=== PATIENT | female | born 1980 | race Caucasian/White ===

== ENCOUNTER → 2016-12-12 | Outpatient (CLI) | payer MEDICARE, BC | LOC: MW.CHNEURO 12:21 | PROVIDERS: ATTEND Psychiatry & Neurology Neuromuscular Medicine | DX: G35 Multiple sclerosis (principal); F33.8 Other recurrent depressive disorders | CPT/HCPCS: 36415; 80053; 84443; 85025; 99214 ==

== ENCOUNTER → 2016-12-15 | Outpatient (CLI) | payer MEDICARE, BC ==
[~2016-12-15] MED LIST: Gadobutrol 10 mMOL/10 ML SDV IVPUSH STA
--- NOTE | 2016-12-15 11:38 | BTN ---
SERVICE DATE: PATIENT #: [id number] #: NOT DICTATED IDENTIFYING INFORMATION: Yesenia is a 36-year-old female who is here today for a followup visit. I saw her last about a month ago. CURRENT MEDICATIONS: Prozac 80 mg a day, Wellbutrin XL 150 mg a day, trazodone 100 mg at bedtime, estazolam 1 mg to 2 mg at bedtime p.r.n., Ambien 5 mg to 10 mg at bedtime p.r.n. and she alternates between the estazolam and the Ambien, and lorazepam she takes 1 mg daily p.r.n. for anxiety. ALLERGIES: She has allergies to aspirin, hydrocodone, penicillin, sulfa, and tramadol. SUBJECTIVE: Aurelia is here today for a followup. She has had kind of a rough month. She came down with the flu and after that, she developed a tremor, some dizziness, no appetite; but she came down with the flu and it coincides with about the same time we started the Wellbutrin, so it is not real clear if that was really due to the flu or if the Wellbutrin is causing some side effects. She has been having a lot more anxiety. She has been having a lot more dreams, not nightmares; but just very vivid dreams. Tired all the time. She saw her neurologist and she is having an MRI done today, but the neurologist thinks it could be due to having the flu which has flared up her MS. REVIEW OF SYSTEMS: Aurelia has MS and that has been probably one of her major issues health peralta. She also has chronic headaches for which she takes Topamax for. No cardiac problems or no endocrine problems. Most recently, she has had the flu with some subsequent dizziness and tremulous. OBJECTIVE: VITAL SIGNS: Blood pressure is 102/76, heart rate 84, respirations 18, temperature is 97.8, weight is 156.8 pounds, and height is 62 inches. MENTAL STATUS EXAM: Yesenia looks tired today. She is a little bit wobbly. So she uses the wall to steady herself, but she is pleasant. Affect is a little flat. She is very well groomed. Appears her stated age. Speech is clear and appropriate. I do not see any delusions, psychosis, pressured speech, or tangential speech. She is alert and oriented x3. Recent and remote memory appear intact. Insight and judgment appear good. Eye contact is good, at least 15 minutes of today's visit were spent providing some cognitive restructuring and education on the side effects with medications and what to watch for. DIAGNOSES: Camuy I: Depression, F32.9; and anxiety, F41.8. Camuy II: No diagnosis. Camuy III: Multiple sclerosis and chronic migraines. Camuy IV: Current stressors are her the new episodes of dizziness, tremulous, and just not feeling well overall. Camuy V: Current Global Assessment of Functioning score 66. TREATMENT PLAN: She is still very depressed. PHQ-9 score is 22. CHARITY-7 score is 16. She does not have any suicidal or homicidal ideation, but she is still very depressed. We tried adding the Wellbutrin last time and I think that very likely could be somewhat because of the side effects she is having. 1. She has been on the Prozac now for a very long time. I do not think it is working, but I am going to get rid of that. She will drop down to 40 mg for the next three or four days and then just stop it. At the same time, I am going to have her start Pristiq 50 mg a day and I will see her back in 2 weeks. We discussed the side effects of the Pristiq. She has her MRI today if that is perfectly fine and they do not see anything with that, I recommended that she may stop the Wellbutrin and see if the symptoms get better. She will do that. She will also call and let the nurse know what the results of the MRI are. I will see her back in 2 weeks. /[id number]
--- NOTE | 2016-12-16 19:33 | MR ---
EXAM DATE: 12/15/16 PATIENT'S AGE: 36 Patient: YOMAIRA QURESHI Facility: [place], [place] Site . Site : [id number] Study: MRI Head [id number] 7:12:39 PM Ordering Physician: Tayo Cramer Final Report: Indication: Multiple sclerosis. Progressing symptoms. Technique: Performed before and after IV gadolinium. Comparison: None are available. Findings: Multiple small foci of nonenhancing T2 signal change are scattered in the white matter of both cerebral hemispheres. Several of the lesions are periventricular subcortical in location, while a few lesions involve the deep white matter. The largest lesion is located in the subcortical white matter along the anterior aspect of the right superior frontal gyrus and measures 15 millimeters in diameter. None of the lesions are sessile of abnormal gadolinium enhancement, hemorrhage, mass effect or restricted diffusion. Several of the lesions all precontrast T1 hypointensity. No evident involvement of the brainstem or cerebellum. No generalized atrophy is identified. No abnormal contrast enhancement involving the meninges, calvarium or skull base. Grossly normal flow voids are maintained in the directly imaged intracranial vascular structures. The craniovertebral junction is unremarkable, with a patent foramen magnum. Both temporal bones are clear. There is slight membrane thickening in the ethmoid paranasal sinuses. Impression: 1. Multiple small foci of nonenhancing signal change are scattered in the cerebral white matter, with a few lesions located in the parasagittal corpus callosum. Findings are typical for the chronic demyelinating plaques of multiple sclerosis. 2. No mass effect, restricted diffusion or abnormal gadolinium enhancement. 3. Moderate burden of T1 hypointense lesions. No atrophy. Dictated by Nigel Caputo MD @ Dec 16 2016 8:22AM (Electronic Signature) Report Signed by Proxy and Original Signed Document filed in the Medical Record. [facility]
== END ==
LOC: MW.MRI 16:52
PROVIDERS: ATTEND Psychiatry & Neurology Neuromuscular Medicine
DX: G35 Multiple sclerosis (principal); F32.9 Major depressive disorder, single episode, unspecified; F41.8 Other specified anxiety disorders
CPT/HCPCS: 70553; 90833; A9585; G0463

== ENCOUNTER → 2016-12-19 | Outpatient (CLI) | payer MEDICARE, BC | LOC: MW.CHFP 08:00 | PROVIDERS: ATTEND Physician Assistant | DX: Z01.818 Encounter for other preprocedural examination (principal); G35 Multiple sclerosis | CPT/HCPCS: 99214 ==

== ENCOUNTER → 2016-12-30 | Outpatient (CLI) | payer MEDICARE, BC ==
[2016-12-30 12:32] LABS: CHLORIDE,CL 113 mmol/L (98-110); SODIUM,NA 142 mmol/L (136-146)
== END ==
LOC: MW.CHFP 11:12
PROVIDERS: ATTEND Physician Assistant
DX: M25.50 Pain in unspecified joint (principal); R53.82 Chronic fatigue, unspecified; M54.6 Pain in thoracic spine; G89.29 Other chronic pain; M79.7 Fibromyalgia; F32.9 Major depressive disorder, single episode, unspecified; F41.8 Other specified anxiety disorders
CPT/HCPCS: 36415; 80053; 81001; 82550; 85025; 85652; 86200; 86308; 86747; 90833; G0463

== ENCOUNTER → 2017-01-16 | Outpatient (CLI) | payer MEDICARE, BC | PROVIDERS: ATTEND Nurse Practitioner Family | DX: F32.9 Major depressive disorder, single episode, unspecified (principal); F41.8 Other specified anxiety disorders | CPT/HCPCS: 99215 ==

== ENCOUNTER → 2017-02-21 | Outpatient (CLI) | payer MEDICARE, BC | LOC: MW.CHFP 08:00 | PROVIDERS: ATTEND Physician Assistant | DX: G35 Multiple sclerosis (principal); Z01.818 Encounter for other preprocedural examination | CPT/HCPCS: G0463 ==

== ENCOUNTER → 2017-02-22 | Outpatient (CLI) | payer MEDICARE, BC | LOC: MW.CHPM 08:00 | PROVIDERS: ATTEND Anesthesiology | DX: G89.4 Chronic pain syndrome (principal); M54.14 Radiculopathy, thoracic region; G35 Multiple sclerosis; M79.2 Neuralgia and neuritis, unspecified | CPT/HCPCS: 99214 ==

== ENCOUNTER 2017-02-28 10:32 | Day surgery (SDC) | payer MEDICARE, BC ==
[2017-02-28] MEDS ORDERED: Lidocaine 2% 5 ML SDV ONE ×2 (12:01→13:07)
[2017-02-28] MEDS ORDERED: Clindamycin Phosphate in D5W 600 MG in Premix Bag 50 BAG IV ONE ×2 (12:32)
--- NOTE | 2017-02-28 12:32 | PCM.PREANE ---
Preanesthetic Assessment - Anesthesia/Transfusion/Family Hx Anesthesia History: Prior Anesthesia Without Reaction Family History of Anesthesia Reaction: No Transfusion History: No Prior Transfusion(s) Intubation History: Unknown - Review of Systems General: No Symptoms Pulmonary: No Symptoms Cardiovascular: No Symptoms Gastrointestinal: No symptoms Neurological: Difficulty Walking Other: Reports: None - Physical Assessment Height: 1.7 m Weight: 77.564 kg ASA Class: 3 Mental Status: Alert & Oriented x3 Airway Class: Mallampati = 2 Dentition: Reports: Normal Dentition Thyro-Mental Finger Breadths: 3 Mouth Opening Finger Breadths: 3 ROM/Head Extension: Full Lungs: Clear to auscultation, Normal respiratory effort Cardiovascular: Regular Rate, Regular Rhythm - Allergies Allergies/Adverse Reactions: Allergies Allergy/AdvReac Type Severity Reaction Status Date / Time aspirin Allergy Joint Pain Verified 12/29/16 11:25 hydrocodone Allergy Fever Verified 12/29/16 11:25 Penicillins Allergy Fever Verified 12/29/16 11:25 shellfish derived Allergy Hives Verified 12/29/16 11:25 Sulfa (Sulfonamide Allergy Hives Verified 12/29/16 11:25 Antibiotics) tramadol Allergy Nausea and Verified 12/29/16 11:25 Vomiting - Blood Blood Available: No - Anesthesia Plan Pre-Op Medication Ordered: None - Acknowledgements Anesthesia Type Planned: MAC Pt an Appropriate Candidate for the Planned Anesthesia: Yes Alternatives and Risks of Anesthesia Discussed w Pt/Guardian: Yes Pt/Guardian Understands and Agrees with Anesthesia Plan: Yes PreAnesthesia Questionnaire HEENT History: Other HEENT History: wears glasses/contacts Cardiovascular History: Reports: None Respiratory History: Reports: Other (See Below) (chronic cough) Gastrointestinal History: Reports: None Genitourinary History: Reports: None HAND STAMPER History: Reports: Musculoskeletal History: Reports: Back Pain, Chronic Other Musculoskeletal History: from MS Neurological History: Reports: Migraines (intractable migranes with aura and status migranosus), MS (with ups and downs for 13 years. She is able to walk with walker during exacerbations. chronic pain syndrome,neuropathic pain, fibromyalgia) Psychiatric History: Reports: Anxiety, Depression Endocrine/Metabolic History: Reports: None Hematologic History: Reports: None Immunologic History: Reports: None Oncologic (Cancer) History: Reports: None Dermatologic History: Reports: None - Past Surgical History Head Surgeries/Procedures: Reports: None HEENT Surgical History: Reports: Tonsillectomy Cardiovascular Surgical History: Reports: None Respiratory Surgical History: Reports: None GI Surgical History: Reports: None Female Surgical History: Reports: Breast Reconstruction, Section Endocrine Surgical History: Reports: None Neurological Surgical History: Reports: None Musculoskeletal Surgical History: Reports: None Oncologic Surgical History: Reports: None - SUBSTANCE USE Smoking Status *Q: Never Smoker Tobacco Use Within Last Twelve Months: No Recreational Drug Use History: No - HOME MEDS Home Medications: Home Meds Desvenlafaxine Succinate [Pristiq] 50 mg PO QAM 12/29/16 [History] Estazolam 2 mg PO ASDIRECTED 12/29/16 [History] LORazepam 1 mg PO ASDIRECTED PRN 12/29/16 [History] Lidocaine [Lidocream] 1 dose TOP ASDIRECTED PRN 12/29/16 [History] SUMAtriptan [Imitrex] 100 mg PO ASDIRECTED PRN 12/29/16 [History] Topiramate 75 mg PO QAM 12/29/16 [History] Topiramate 100 mg PO BEDTIME 12/29/16 [History] Zolpidem [Ambien] 5 mg PO ASDIRECTED 12/29/16 [History] buPROPion HCl [Wellbutrin Xl] 150 mg PO QAM 12/29/16 [History] traZODone HCl [Trazodone HCl] 100 mg PO BEDTIME 12/29/16 [History] - CURRENT (IN HOUSE) MEDS Current Meds: Current Medications Discontinued Medications Lidocaine (Xylocaine-Mpf 2%) Confirm Administered Dose 10 ml .ROUTE .STK-MED ONE Stop: 02/28/17 12:02 Lidocaine HCl (Xylocaine-Mpf 1%) Confirm Administered Dose 5 ml .ROUTE .STK-MED ONE Stop: 02/28/17 12:02
[2017-02-28] MEDS ORDERED: Propofol 200 MG/20 ML SDV ONE ×2 (13:07→13:47)
--- NOTE | 2017-02-28 16:43 | PCM48HPAN ---
Post Anesthesia Note - EVALUATION WITHIN 48HRS OF ANESTHETIC Vital Signs in Normal Range: Yes Patient Participated in Evaluation: Yes Respiratory Function Stable: Yes Airway Patent: Yes Cardiovascular Function Stable: Yes Hydration Status Stable: Yes Pain Control Satisfactory: Yes Nausea and Vomiting Control Satisfactory: Yes Mental Status Recovered: Yes
--- NOTE | 2017-02-28 22:09 | OR ---
SURGEON: Lyudmila Taylor D.O. DATE OF PROCEDURE: 02/28/2017 OR STAFF PRESENT: Floridalma Hernandez RN. Urvashi Velasco RN REEL ASSEMBLER: RT Tomasa. WOUND CLASSIFICATION: I. PREOPERATIVE DIAGNOSES: 1. Chronic pain syndrome. 2. Thoracic radiculopathy. 3. Multiple sclerosis. 4. Central pain syndrome. 5. peripheral neuropathy- bilateral lower extremity POSTOPERATIVE DIAGNOSES: 1. Chronic pain syndrome. 2. Thoracic radiculopathy. 3. Multiple sclerosis. 4. Central pain syndrome. 5. peripheral neuropathy- bilateral lower extremity PROCEDURE PERFORMED: 1. Spinal cord stimulator trial lead implantation with [employer] ,Infinion 16 , 50 cm 16 contact contact trial lead 2. Fluoroscopic guidance for needle placement. ANESTHESIA:MAC. SCREENING QUESTIONS: The patient answered no to all the following questions: 1. Are you allergic to iodine, Betadine, or latex? 2. Do you have a bleeding disorder? 3. Are you on anti-inflammatories or blood thinners? 4. Are you ? 5. Do you have any current local or systemic infections? 6. Do you have any joint replacements, heart valve replacements or a pacemaker? DESCRIPTION OF PROCEDURE: The patient had the procedure thoroughly explained including risks, benefits, and alternatives. Consent was signed in my clinic indicating understanding and willingness to proceed. The patient presented to [facility] and was escorted to the dressing room to disrobe and change into a hospital gown. Preoperative history and screening were performed by the nurse. Vital signs were taken and stable. The patient was set up with an IV prior to the procedure. The patient was brought back to the procedure room and placed in the prone position on the procedure room table. A pillow was placed under the abdomen in order to flatten the lumbar lordosis. The patient was positioned comfortably and there was no evidence of infection at the sites of needle insertion. The back was prepped with ChloraPrep and sterilely draped. All personnel in the operating room were dressed in appropriate attire including surgical scrubs, head and shoe covers. This was to ensure sterility while in the treatment room. During the time fluoroscopy was in use, all personnel in the operating room wore lead ellison with thyroid collars. Sterile technique was used during the procedure. Prior to the start of the procedure, prophylactic antibiotic was administered IV. Skeletal landmarks were identified under fluoroscopic guidance. At all insertion sites, at T12-L1 the skin and soft tissues were anesthetized with 2% lidocaine preservative-free with a sterile 27-gauge 1-1/2 inch needle. The epidural space was entered with a 14-gauge Tuohy epidural needle with loss-of- resistance technique. Under live fluoroscopic guidance, the Infinion 16 standard contact lead electrodes were advanced approximately to the midline at the middle of the T4 vertebral body midline. No CSF, no heme, no paresthesia were noted. Testing by the neuromodulation clinical specialist revealed appropriate coverage of the patient's normal areas of pain in the chest and bilateral lower extremities. The lead was then secured to the skin with occlusive dressing. No complications were noted throughout the procedure and vital signs were stable. Then the patient was brought to the recovery room in stable condition. At that time, the patient had additional stimulation patterns programmed which covered all the normal areas of pain. The patient tolerated the procedure well and was released home with postoperative instructions for follow up in the clinic. The patient will fill out a pain diary throughout the week of the spinal cord stimulator trial. Additionally, prior to discharge, postoperative instructions were given to the patient and the patient voiced understanding, including understanding of those signs and symptoms that would require emergency care. PREOPERATIVE PAIN: 8-9/10. POSTOPERATIVE PAIN: 7/10 over the incision area only. Bilateral lower extremity 0/10, test at 0/10 -The patient with all areas of previous pain controlled by spinal cord stimulator programing. FOLLOWUP: Planned followup in the pain clinic in the morning at 8:15. TEVIN / RUEL /[id number] BEENA
--- NOTE | 2017-03-01 13:09 | CR ---
EXAMINATION: Thoracic spine HISTORY: Stimulator placement COMPARISON: MRI dated 11/09/2016 TECHNIQUE: 9 fluoroscopic images provided FINDINGS/IMPRESSION: Operative control films demonstrate placement of a spinal stimulator lead proje cting over the upper thoracic spine.
--- NOTE | 2017-03-02 16:56 | CR ---
EXAMINATION: Thoracic spine HISTORY: Stimulator placement COMPARISON: MRI dated 11/09/2016 TECHNIQUE: 9 fluoroscopic images provided FINDINGS/IMPRESSION: Operative control films demonstrate placement of a spinal stimulator lead projecting over the upper thoracic spine. BEENA
== END 2017-02-28 16:05 | disposition home or self-care (01) ==
LOC: MW.SDS 10:32
PROVIDERS: ATTEND Anesthesiology
DX: G89.4 Chronic pain syndrome (principal); M54.14 Radiculopathy, thoracic region; G35 Multiple sclerosis; M54.6 Pain in thoracic spine; F32.9 Major depressive disorder, single episode, unspecified; F41.9 Anxiety disorder, unspecified; M79.7 Fibromyalgia; D72.819 Decreased white blood cell count, unspecified; G43.111 Migraine with aura, intractable, with status migrainosus; G47.00 Insomnia, unspecified; Z92.25 Personal history of immunosuppression therapy; Z88.2 Allergy status to sulfonamides; Z88.0 Allergy status to penicillin; Z88.6 Allergy status to analgesic agent; Z88.8 Allergy status to other drugs, medicaments and biological substances; Z79.899 Other long term (current) drug therapy; Z98.890 Other specified postprocedural states
CPT/HCPCS: 63650; 76001; 81025; C1778; 00630; 63685; J2704

== ENCOUNTER → 2017-02-28 | Outpatient (CLI) | payer MEDICARE, BC ==
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
== END ==
LOC: MW.CHPM 10:10
PROVIDERS: ATTEND Anesthesiology
DX: Z00.00 Encounter for general adult medical examination without abnormal findings (principal); G89.4 Chronic pain syndrome
CPT/HCPCS: 81025

== ENCOUNTER → 2017-03-03 | Outpatient (CLI) | payer MEDICARE, BC | LOC: MW.CHNEURO 08:00 | PROVIDERS: ATTEND Psychiatry & Neurology Neuromuscular Medicine | DX: R42 Dizziness and giddiness (principal) | CPT/HCPCS: 99214 ==